=== PATIENT | female | born 1955 | race Caucasian/White ===

== ENCOUNTER 2021-06-17 08:45 | Inpatient (IN) | payer MEDICAID ==
[~2021-06-17] VITALS: Ht 160 cm; Wt 59.8 kg
[2021-06-17] MEDS ORDERED: ETOMIDATE 2 MG/ML 10 ML VIAL IVP ONE (09:00)
[2021-06-17] MEDS ORDERED: SUCCINYLCHOLINE CHLORIDE 20 MG/ML 10 ML VIAL IVP ONE (09:00)
[2021-06-17] MEDS ORDERED: IOHEXOL 350 MG/ML 100 ML VIAL ONE (09:02)
[2021-06-17] MEDS ORDERED: SODIUM CHLORIDE 0.9% 100 ML ONE (09:02)
[2021-06-17] MEDS ORDERED: ASPI-1450 PO (09:13)
[2021-06-17] MEDS ORDERED: CARV25 PO (09:13)
[2021-06-17] MEDS ORDERED: LEVE500T20 PO (09:13)
[2021-06-17] MEDS ORDERED: LISI-893 PO (09:13)
[2021-06-17] MEDS ORDERED: AMLO-258 PO (09:13)
[2021-06-17] MEDS ORDERED: NiCARDipine HCL 25 MG in DEXTROSE 5%-WATER 240 ML IV PRN (09:15)
[2021-06-17 09:34] LABS: BASOPHILS % (AUTO) 0.4 % (0.0-2.0); EOSINOPHILS % (AUTO) 0 % (1.0-6.0); HEMATOCRIT 40.3 % (36-46); HEMOGLOBIN 13.3 g/dL (12.0-16.0); LYMPHOCYTES % (AUTO) 7.7 % (22.0-44.0); MEAN CORPUSCULAR HEMOGLOBIN 28.8 pg (26.0-34.0); MEAN CORPUSCULAR HGB CONC 33.1 G/dL (31.0-37.0); MEAN CORPUSCULAR VOLUME 87 fL (80-100); MONOCYTES # (AUTO) 0.8 K/uL (0.1-1.0); MONOCYTES % (AUTO) 6.1 % (2.0-9.0); NEUTROPHILS # (AUTO) 11.4 K/uL (1.8-7.7); NEUTROPHILS % (AUTO) 85.8 % (40.0-70.0); PLATELET COUNT (AUTO) 267 K/uL (150-450); RED BLOOD CELL COUNT(AUTO) 4.63 MIL/uL (4.00-5.20)
[2021-06-17] MEDS: PROPOFOL 1000 MG/ISO-OSM 100 ML IV PRN ×3 (09:44→19:49)
[2021-06-17 09:46] LABS: CALCIUM, TOTAL 8.7 mg/dL (8.8-10.5); CREATININE 1.1 mg/dL (0.60-1.30); INR 1.1 (0.9-1.1); POTASSIUM 3.3 mmol/L (3.5-5.1); PROTHROMBIN TIME 11.8 SEC (9.4-11.6)
[2021-06-17 09:49] LABS: ALBUMIN 3.3 g/dL (3.4-5.0); BILIRUBIN,TOTAL 0.6 mg/dL (0.1-1.0)
[2021-06-17 10:13] LABS: COVID AG,FIA SOURCE NASAL SWAB
[2021-06-17 10:26] LABS: AMPHET/METH SCREEN,URINE NEGATIVE (NEGATIVE); BARBITURATE SCREEN, URINE NEGATIVE (NEGATIVE); BENZODIAZEPINES SCREEN,URINE NEGATIVE (NEGATIVE); CANNABINOID SCREEN,URINE NEGATIVE (NEGATIVE); COCAINE SCREEN,URINE NEGATIVE (NEGATIVE); METHADONE SCREEN, URINE NEGATIVE (NEGATIVE); OPIATE SCREEN,URINE NEGATIVE (NEGATIVE)
[2021-06-17 10:33] LABS: BILIRUBIN,URINE NEGATIVE (NEGATIVE); GLUCOSE, URINE (UA) NEGATIVE (NEGATIVE); KETONES,URINE TRACE mg/dL (NEGATIVE); LEUKOCYTE ESTERASE ,URINE NEGATIVE (NEGATIVE); NITRATE,URINE NEGATIVE (NEGATIVE); OCCULT BLOOD,URINE NEGATIVE (NEGATIVE); PROTEIN,URINE SEE CONFIRM (NEGATIVE)
[2021-06-17 10:35] LABS: APPEARANCE,URINE CLEAR (CLEAR)
[2021-06-17 10:36] LABS: PHENCYCLIDINE SCREEN,URINE NEGATIVE (NEGATIVE)
[2021-06-17 10:38] LABS: SULFOSALICYLIC ACID,URINE 2+ (Negative)
[2021-06-17 10:39] LABS: BACTERIA,URINE Moderate /HPF (None Seen); RBC,URINE None Seen /HPF (0-2); WBC,URINE None Seen /HPF (0-5)
[2021-06-17 12:00] VITALS: BP 117/57
[2021-06-17 13:36] LABS: GLUCOSE,POINT OF CARE 182 MG/DL (70-110)
[2021-06-17 16:00] VITALS: BP 116/59
[2021-06-17] MEDS ORDERED: IPRATROPIUM BROMIDE 0.5 MG/2.5 ML NEB SOLUTION NEB PRN (19:30)
[2021-06-17] MEDS ORDERED: ONDANSETRON HCL 4 MG/2 ML VIAL IVP PRN (19:30)
[2021-06-17] MEDS ORDERED: ZOLPIDEM TARTRATE 5 MG TABLET PO PRN (19:30)
[2021-06-17] MEDS ORDERED: ALBUTEROL SULFATE 2.5 MG/0.5 ML NEB SOLUTION NEB PRN (19:30)
[2021-06-17] MEDS ORDERED: MAGNESIUM HYDROXIDE SUSPENSION 30 ML UDCUP PO PRN (19:30)
[2021-06-17] MEDS ORDERED: BISACODYL 10 MG RECTAL RECTAL SUPPOSITORY PR PRN (19:30)
[2021-06-17 20:00] VITALS: BP 97/72
[2021-06-17] MEDS: LevETIRAcetam 500 MG in DEXTROSE 5%-WATER 100 ML IV SCH (21:01)
[2021-06-17] MEDS: DOCUSATE SODIUM 100 MG CAPSULE PO SCH (21:03)
[2021-06-17] MEDS ORDERED: SODIUM CHLORIDE 0.9% 250 ML IV ONE (21:22)
[2021-06-18] VITALS (10 sets, daily range): BP systolic 113–141; BP diastolic 65–97
[2021-06-18] MEDS: DOCUSATE SODIUM 100 MG CAPSULE PO SCH ×2 (08:39→19:58)
[2021-06-18] MEDS: PANTOPRAZOLE SODIUM 40 MG/VIAL IVP SCH (08:39)
[2021-06-18] MEDS: LevETIRAcetam 500 MG in DEXTROSE 5%-WATER 100 ML IV SCH ×2 (08:39→19:55)
[2021-06-18] MEDS: ACETAMINOPHEN 325 MG TABLET PO PRN ×2 (10:47→15:39)
[2021-06-18] MEDS ORDERED: POTASSIUM CHLORIDE 20 MEQ ER TABLET PO PRN (13:15)
[2021-06-18] MEDS: POTASSIUM CHL 10 MEQ/WATER 50 ML IV PRN ×3 (13:47→15:37)
[2021-06-18 23:57] LABS: ABG CARBOXYHEMOGLOBIN 1.5 % (0.0-1.5); ABG HCO3 24.6 mmol/L (22.0-26.0); ABG OXYGEN CONTENT 20.7 mL/dL (15.0-23.0); ABG OXYGEN SATURATION 98.4 % (95.0-98.0); ABG OXYHEMOGLOBIN 96.9 % (94.0-100.0); ABG PCO2 39 mmHg (35-45); ABG PH 7.413 (7.35-7.450); ABG TOTAL HEMOGLOBIN 15.1 G/dL (12.0-18.0); PO2, ARTERIAL BG 104.6 mmHg (79.0-87.0); SOURCE, BLOOD GAS ARTERIAL; TEMPERATURE, FAHRENHEIT, BG 98.6 FAHREN (96.0-98.6)
[2021-06-18 23:59] LABS: O2 DEVICE,BLOOD GAS VENTILATOR (ROOM AIR); PEEP,BG 5 cm H2O; SITE, BLOOD GAS RT BRACHIAL; SPONTANEOUS VT, BG 389 ml; VT, ABG 400 ml
[2021-06-19] VITALS (8 sets, daily range): BP systolic 126–149; BP diastolic 85–95
[2021-06-19 06:43] LABS: BASOPHILS % (AUTO) 0.8 % (0.0-2.0); EOSINOPHILS % (AUTO) 1.8 % (1.0-6.0); HEMATOCRIT 46.1 % (36-46); HEMOGLOBIN 15.2 g/dL (12.0-16.0); LYMPHOCYTES # (AUTO) 1.4 K/uL (1.0-4.8); LYMPHOCYTES % (AUTO) 10.2 % (22.0-44.0); MEAN CORPUSCULAR HEMOGLOBIN 29.2 pg (26.0-34.0); MEAN CORPUSCULAR HGB CONC 32.9 G/dL (31.0-37.0); MEAN CORPUSCULAR VOLUME 89 fL (80-100); MONOCYTES # (AUTO) 0.9 K/uL (0.1-1.0); MONOCYTES % (AUTO) 6.9 % (2.0-9.0); NEUTROPHILS % (AUTO) 80.3 % (40.0-70.0); PLATELET COUNT (AUTO) 221 K/uL (150-450); RED BLOOD CELL COUNT(AUTO) 5.19 MIL/uL (4.00-5.20)
[2021-06-19] MEDS: LevETIRAcetam 500 MG in DEXTROSE 5%-WATER 100 ML IV SCH ×2 (08:12→20:10)
[2021-06-19] MEDS: DOCUSATE SODIUM 100 MG CAPSULE PO SCH ×2 (08:13→20:14)
[2021-06-19] MEDS: AmLODIPine BESYLATE 5 MG TABLET PO SCH (08:13)
[2021-06-19] MEDS: ACETAMINOPHEN 325 MG TABLET PO PRN (08:13)
[2021-06-19] MEDS: PANTOPRAZOLE SODIUM 40 MG/VIAL IVP SCH (08:13)
[2021-06-19] MEDS: ETHYL ALCOHOL 62% ANTISEPTIC NASAL INHALANT 0.6 ML AMPUL NASAL SCH ×2 (08:13→20:14)
[2021-06-19] MEDS ORDERED: SODIUM CHLORIDE 0.9% 250 ML IV ONE (20:23)
[2021-06-20] VITALS: BP 132/90
[2021-06-20 04:00] VITALS: BP 138/90
[2021-06-20 08:00] VITALS: BP 127/94
[2021-06-20 08:56] LABS: BASOPHILS % (AUTO) 0.5 % (0.0-2.0); EOSINOPHILS % (AUTO) 1.5 % (1.0-6.0); HEMOGLOBIN 14.6 g/dL (12.0-16.0); LYMPHOCYTES # (AUTO) 1.1 K/uL (1.0-4.8); LYMPHOCYTES % (AUTO) 9.7 % (22.0-44.0); MEAN CORPUSCULAR HEMOGLOBIN 29.5 pg (26.0-34.0); MEAN CORPUSCULAR HGB CONC 33.2 G/dL (31.0-37.0); MEAN CORPUSCULAR VOLUME 89 fL (80-100); MONOCYTES # (AUTO) 0.8 K/uL (0.1-1.0); MONOCYTES % (AUTO) 6.7 % (2.0-9.0); NEUTROPHILS # (AUTO) 9.2 K/uL (1.8-7.7); NEUTROPHILS % (AUTO) 81.6 % (40.0-70.0); PLATELET COUNT (AUTO) 224 K/uL (150-450); RED BLOOD CELL COUNT(AUTO) 4.94 MIL/uL (4.00-5.20); RED CELL DISTRIBUTION WIDTH 13.9 % (11.5-14.5)
[2021-06-20] MEDS: LevETIRAcetam 500 MG in DEXTROSE 5%-WATER 100 ML IV SCH ×2 (08:57→20:59)
[2021-06-20] MEDS: ETHYL ALCOHOL 62% ANTISEPTIC NASAL INHALANT 0.6 ML AMPUL NASAL SCH ×2 (08:57→21:42)
[2021-06-20] MEDS: PANTOPRAZOLE SODIUM 40 MG/VIAL IVP SCH (08:57)
[2021-06-20] MEDS: AmLODIPine BESYLATE 5 MG TABLET PO SCH (08:58)
[2021-06-20] MEDS: DOCUSATE SODIUM 100 MG CAPSULE PO SCH ×2 (08:58→21:42)
[2021-06-20 09:14] LABS: ANION GAP 15 mmol/L (8-16); CALCIUM, TOTAL 9.4 mg/dL (8.8-10.5); CARBON DIOXIDE 24 mmol/L (22-29); CHLORIDE 106 mmol/L (98-107); CREATININE 0.78 mg/dL (0.60-1.30); GLOMERULAR FILTR. RATE CALC > 60 mL/min (>60); GLUCOSE,RANDOM 126 mg/dL (70-110); POTASSIUM 3.5 mmol/L (3.5-5.1); SODIUM SERUM 145 mmol/L (136-145); UREA NITROGEN, BLOOD 38 mg/dL (7-18)
[2021-06-20] MEDS ORDERED: SODIUM CHLORIDE 0.9% 250 ML IV ONE (10:27)
[2021-06-20 12:00] VITALS: BP 135/90
[2021-06-20] MEDS: ACETAMINOPHEN 325 MG TABLET PO PRN (12:06)
[2021-06-20 16:00] VITALS: BP 137/103
[2021-06-20] MEDS: CARVEDILOL 6.25 MG TABLET PO SCH (21:42)
[2021-06-21] VITALS: BP 141/89
[2021-06-21 04:00] VITALS: BP 136/86
[2021-06-21 08:00] VITALS: BP 137/97
[2021-06-21] MEDS: AmLODIPine BESYLATE 5 MG TABLET PO SCH (08:56)
[2021-06-21] MEDS: CARVEDILOL 6.25 MG TABLET PO SCH ×2 (08:56→19:52)
[2021-06-21] MEDS: PANTOPRAZOLE SODIUM 40 MG/VIAL IVP SCH (08:56)
[2021-06-21] MEDS: DOCUSATE SODIUM 100 MG CAPSULE PO SCH ×2 (08:56→19:52)
[2021-06-21] MEDS: ETHYL ALCOHOL 62% ANTISEPTIC NASAL INHALANT 0.6 ML AMPUL NASAL SCH ×2 (08:57→19:52)
[2021-06-21] MEDS: LevETIRAcetam 500 MG in DEXTROSE 5%-WATER 100 ML IV SCH ×2 (08:57→19:52)
[2021-06-21] MEDS: ACETAMINOPHEN 325 MG TABLET PO PRN ×2 (09:19→16:03)
[2021-06-21] MEDS ORDERED: SODIUM CHLORIDE 0.9% 250 ML IV ONE (11:56)
[2021-06-21 12:00] VITALS: BP 98/83
[2021-06-21 16:00] VITALS: BP 132/99
[2021-06-21] MEDS ORDERED: *CLINICAL-LEVOFLOXACIN IVPB DOSING CLINICAL ONE (18:30)
[2021-06-21] MEDS: LEVOFLOXACIN 750 MG/D5% WATER 150 ML IV SCH (19:52)
[2021-06-21 20:00] VITALS: BP 123/83
[2021-06-22] VITALS: BP 117/85
[2021-06-22 04:00] VITALS: BP 123/87
[2021-06-22 08:00] VITALS: BP 127/86
[2021-06-22] MEDS: PANTOPRAZOLE SODIUM 40 MG/VIAL IVP SCH (08:20)
[2021-06-22] MEDS: DOCUSATE SODIUM 100 MG CAPSULE PO SCH ×2 (08:20→21:00)
[2021-06-22] MEDS: CARVEDILOL 6.25 MG TABLET PO SCH ×2 (08:21→21:26)
[2021-06-22] MEDS: LevETIRAcetam 500 MG in DEXTROSE 5%-WATER 100 ML IV SCH ×2 (08:21→21:19)
[2021-06-22] MEDS: AmLODIPine BESYLATE 5 MG TABLET PO SCH (08:21)
[2021-06-22] MEDS: ETHYL ALCOHOL 62% ANTISEPTIC NASAL INHALANT 0.6 ML AMPUL NASAL SCH ×2 (08:21→21:25)
[2021-06-22 11:38] LABS: BASOPHILS % (AUTO) 0.6 % (0.0-2.0); EOSINOPHILS % (AUTO) 4.2 % (1.0-6.0); HEMATOCRIT 41.8 % (36-46); HEMOGLOBIN 13.9 g/dL (12.0-16.0); LYMPHOCYTES # (AUTO) 1.2 K/uL (1.0-4.8); LYMPHOCYTES % (AUTO) 10.1 % (22.0-44.0); MEAN CORPUSCULAR HEMOGLOBIN 29.4 pg (26.0-34.0); MEAN CORPUSCULAR HGB CONC 33.2 G/dL (31.0-37.0); MEAN CORPUSCULAR VOLUME 89 fL (80-100); MONOCYTES # (AUTO) 0.9 K/uL (0.1-1.0); MONOCYTES % (AUTO) 7.6 % (2.0-9.0); NEUTROPHILS # (AUTO) 9.5 K/uL (1.8-7.7); NEUTROPHILS % (AUTO) 77.5 % (40.0-70.0); PLATELET COUNT (AUTO) 172 K/uL (150-450); RED BLOOD CELL COUNT(AUTO) 4.72 MIL/uL (4.00-5.20); RED CELL DISTRIBUTION WIDTH 14.2 % (11.5-14.5)
[2021-06-22 12:00] VITALS: BP 120/84
[2021-06-22 12:34] LABS: APPEARANCE,URINE CLEAR (CLEAR); BILIRUBIN,URINE NEGATIVE (NEGATIVE); GLUCOSE, URINE (UA) NEGATIVE (NEGATIVE); KETONES,URINE NEGATIVE (NEGATIVE); LEUKOCYTE ESTERASE ,URINE NEGATIVE (NEGATIVE); NITRATE,URINE NEGATIVE (NEGATIVE); PH,URINE 5.5 (5.0-8.0); PROTEIN,URINE POS 1+ (NEGATIVE)
[2021-06-22 12:39] LABS: BACTERIA,URINE None Seen /HPF (None Seen); OCCULT BLOOD,URINE SMALL (NEGATIVE); WBC,URINE None Seen /HPF (0-5)
[2021-06-22 16:00] VITALS: BP 138/97
[2021-06-22] MEDS: LEVOFLOXACIN 750 MG/D5% WATER 150 ML IV SCH (18:11)
[2021-06-22 20:00] VITALS: BP 133/93
[2021-06-23] VITALS: BP 119/85
[2021-06-23] MEDS: ACETAMINOPHEN 325 MG TABLET PO PRN ×2 (03:23→17:11)
[2021-06-23 07:21] VITALS: BP 125/84
[2021-06-23 08:00] VITALS: BP 126/85
[2021-06-23] MEDS: AmLODIPine BESYLATE 5 MG TABLET PO SCH (08:07)
[2021-06-23] MEDS: ETHYL ALCOHOL 62% ANTISEPTIC NASAL INHALANT 0.6 ML AMPUL NASAL SCH ×2 (08:07→21:35)
[2021-06-23] MEDS: LevETIRAcetam 500 MG in DEXTROSE 5%-WATER 100 ML IV SCH ×2 (08:07→21:36)
[2021-06-23] MEDS: CARVEDILOL 6.25 MG TABLET PO SCH ×2 (08:07→21:35)
[2021-06-23] MEDS: PANTOPRAZOLE SODIUM 40 MG/VIAL IVP SCH (08:07)
[2021-06-23] MEDS: DOCUSATE SODIUM 100 MG CAPSULE PO SCH ×2 (08:08→21:35)
[2021-06-23 12:00] VITALS: BP 118/84
[2021-06-23 16:00] VITALS: BP 116/75
[2021-06-23] MEDS: LEVOFLOXACIN 750 MG/D5% WATER 150 ML IV SCH (19:49)
[2021-06-23 20:00] VITALS: BP 112/77
[2021-06-24 00:59] VITALS: BP 113/72
[2021-06-24] MEDS: ACETAMINOPHEN 325 MG TABLET PO PRN ×2 (01:05→16:15)
[2021-06-24 04:35] VITALS: BP 118/80
[2021-06-24 06:05] LABS: BASOPHILS % (AUTO) 0.6 % (0.0-2.0); HEMATOCRIT 40.7 % (36-46); HEMOGLOBIN 13.3 g/dL (12.0-16.0); LYMPHOCYTES # (AUTO) 1.4 K/uL (1.0-4.8); LYMPHOCYTES % (AUTO) 13.6 % (22.0-44.0); MEAN CORPUSCULAR HEMOGLOBIN 29.1 pg (26.0-34.0); MEAN CORPUSCULAR HGB CONC 32.6 G/dL (31.0-37.0); MEAN CORPUSCULAR VOLUME 89 fL (80-100); MONOCYTES # (AUTO) 0.8 K/uL (0.1-1.0); MONOCYTES % (AUTO) 7.4 % (2.0-9.0); NEUTROPHILS # (AUTO) 7.7 K/uL (1.8-7.7); NEUTROPHILS % (AUTO) 74.4 % (40.0-70.0); PLATELET COUNT (AUTO) 181 K/uL (150-450); RED BLOOD CELL COUNT(AUTO) 4.55 MIL/uL (4.00-5.20)
[2021-06-24 06:16] LABS: ANION GAP 9 mmol/L (8-16); CARBON DIOXIDE 26 mmol/L (22-29); CHLORIDE 106 mmol/L (98-107); CREATININE 0.89 mg/dL (0.60-1.30); GLOMERULAR FILTR. RATE CALC > 60 mL/min (>60); GLUCOSE,RANDOM 116 mg/dL (70-110); POTASSIUM 3.5 mmol/L (3.5-5.1); SODIUM SERUM 141 mmol/L (136-145); UREA NITROGEN, BLOOD 38 mg/dL (7-18)
[2021-06-24] MEDS ORDERED: SODIUM CHLORIDE 0.9% 250 ML IV ONE (07:41)
[2021-06-24 08:00] VITALS: BP 111/81
[2021-06-24] MEDS: LevETIRAcetam 500 MG in DEXTROSE 5%-WATER 100 ML IV SCH ×2 (08:19→19:57)
[2021-06-24] MEDS: CARVEDILOL 6.25 MG TABLET PO SCH ×2 (08:19→21:29)
[2021-06-24] MEDS: AmLODIPine BESYLATE 5 MG TABLET PO SCH (08:19)
[2021-06-24] MEDS: PANTOPRAZOLE SODIUM 40 MG/VIAL IVP SCH (08:19)
[2021-06-24] MEDS: ETHYL ALCOHOL 62% ANTISEPTIC NASAL INHALANT 0.6 ML AMPUL NASAL SCH ×2 (08:19→21:29)
[2021-06-24] MEDS: DOCUSATE SODIUM 100 MG CAPSULE PO SCH ×2 (08:19→21:29)
[2021-06-24 12:00] VITALS: BP 113/84
[2021-06-24 16:00] VITALS: BP 130/63
[2021-06-24] MEDS: LEVOFLOXACIN 750 MG/D5% WATER 150 ML IV SCH (19:57)
[2021-06-24 20:00] VITALS: BP 137/84
[2021-06-25] VITALS: BP 134/82
[2021-06-25 04:00] VITALS: BP 130/87
[2021-06-25] MEDS: ACETAMINOPHEN 325 MG TABLET PO PRN (04:38)
[2021-06-25 08:00] VITALS: BP 132/88
[2021-06-25] MEDS: DOCUSATE SODIUM 100 MG CAPSULE PO SCH ×2 (08:32→20:37)
[2021-06-25] MEDS: ETHYL ALCOHOL 62% ANTISEPTIC NASAL INHALANT 0.6 ML AMPUL NASAL SCH ×2 (08:32→20:37)
[2021-06-25] MEDS: AmLODIPine BESYLATE 5 MG TABLET PO SCH (08:32)
[2021-06-25] MEDS: CARVEDILOL 6.25 MG TABLET PO SCH ×2 (08:32→20:37)
[2021-06-25] MEDS: LevETIRAcetam 500 MG in DEXTROSE 5%-WATER 100 ML IV SCH ×2 (08:32→20:37)
[2021-06-25] MEDS: PANTOPRAZOLE SODIUM 40 MG/VIAL IVP SCH (08:32)
[2021-06-25 12:00] VITALS: BP 109/69
[2021-06-25 16:00] VITALS: BP 113/77
[2021-06-25 20:00] VITALS: BP 112/78
[2021-06-25] MEDS: LEVOFLOXACIN 750 MG/D5% WATER 150 ML IV SCH (20:37)
[2021-06-26] VITALS: BP 115/70
[2021-06-26 04:00] VITALS: BP 110/78
[2021-06-26] MEDS: POTASSIUM CHL 10 MEQ/WATER 50 ML IV PRN (07:55)
[2021-06-26] MEDS: PANTOPRAZOLE SODIUM 40 MG/VIAL IVP SCH (07:55)
[2021-06-26] MEDS: CARVEDILOL 6.25 MG TABLET PO SCH ×2 (07:55→20:11)
[2021-06-26] MEDS: AmLODIPine BESYLATE 5 MG TABLET PO SCH (07:55)
[2021-06-26] MEDS: LevETIRAcetam 500 MG in DEXTROSE 5%-WATER 100 ML IV SCH ×2 (07:56→19:48)
[2021-06-26] MEDS: ETHYL ALCOHOL 62% ANTISEPTIC NASAL INHALANT 0.6 ML AMPUL NASAL SCH ×2 (07:56→20:11)
[2021-06-26] MEDS ORDERED: SODIUM CHLORIDE 0.9% 250 ML IV ONE (08:08)
[2021-06-26 08:10] VITALS: BP 110/76
[2021-06-26] MEDS: DOCUSATE SODIUM 100 MG CAPSULE PO SCH ×2 (09:00→20:11)
[2021-06-26 10:00] VITALS: BP 11/77
[2021-06-27] MEDS: PANTOPRAZOLE SODIUM 40 MG/VIAL IVP SCH (07:51)
[2021-06-27] MEDS: LevETIRAcetam 500 MG in DEXTROSE 5%-WATER 100 ML IV SCH ×2 (07:56→20:04)
[2021-06-27] MEDS: DOCUSATE SODIUM 100 MG CAPSULE PO SCH ×2 (07:56→20:06)
[2021-06-27] MEDS: ETHYL ALCOHOL 62% ANTISEPTIC NASAL INHALANT 0.6 ML AMPUL NASAL SCH ×2 (07:56→20:08)
[2021-06-27] MEDS: AmLODIPine BESYLATE 5 MG TABLET PO SCH (07:57)
[2021-06-27] MEDS: CARVEDILOL 6.25 MG TABLET PO SCH ×2 (07:57→20:06)
[2021-06-27] MEDS: MORPHINE SULFATE 100 MG/NS/PF 100 ML IV PRN ×3 (07:59→23:00)
[2021-06-27 08:00] VITALS: BP 112/70
[2021-06-28] MEDS: MORPHINE SULFATE 100 MG/NS/PF 100 ML IV PRN ×2 (05:18→18:13)
[2021-06-28 20:25] VITALS: BP 154/64
[2021-06-29] MEDS: MORPHINE SULFATE 100 MG/NS/PF 100 ML IV PRN ×5 (03:46→23:31)
[2021-06-29 04:15] VITALS: BP 145/65
[2021-06-29 08:19] VITALS: BP 127/93
[2021-06-29 15:54] VITALS: BP 126/82
[2021-06-29 21:19] VITALS: BP 136/89
[2021-06-30 05:13] VITALS: BP 147/97
[2021-06-30] MEDS: MORPHINE SULFATE 100 MG/NS/PF 100 ML IV PRN ×2 (05:41→10:53)
[2021-06-30 08:12] VITALS: BP 146/107
== END 2021-06-30 14:12 | DRG 44 ==
LOC: EMS 08:48 → EDBD 08:48 → ICU 10:36 → 6N 06-28 18:55 → 6S 06-30 11:17
PROVIDERS: ADMIT Hospitalist; ATTEND Hospitalist
PROC: 5A1955Z Respiratory Ventilation, Greater than 96 Consecutive Hours (ICD-10-PCS; principal; 2021-06-17)
PROC: 0BH17EZ Insertion of Endotracheal Airway into Trachea, Via Natural or Artificial Opening (ICD-10-PCS; 2021-06-17)
DX: I61.9 Nontraumatic intracerebral hemorrhage, unspecified (principal); J96.00 Acute respiratory failure, unspecified whether with hypoxia or hypercapnia; E44.0 Moderate protein-calorie malnutrition; I16.1 Hypertensive emergency; E87.6 Hypokalemia; D72.829 Elevated white blood cell count, unspecified; Z66 Do not resuscitate; G91.9 Hydrocephalus, unspecified; Z68.23 Body mass index [BMI] 23.0-23.9, adult; I10 Essential (primary) hypertension; I25.10 Atherosclerotic heart disease of native coronary artery without angina pectoris; I95.9 Hypotension, unspecified; Z20.822 Contact with and (suspected) exposure to COVID-19; R41.82 Altered mental status, unspecified; Z88.0 Allergy status to penicillin; Z86.73 Personal history of transient ischemic attack (TIA), and cerebral infarction without residual deficits; Z51.5 Encounter for palliative care
CPT/HCPCS: 31500; 36600; 51702; 70450; 70496; 70498; 71045; 80048; 80053; 81001; 81002; 82805; 82962; 84132; 84484; 85025; 85610; 85730; 86850; 86900; 86901; 87081; 87086; 93005; 94002; 94003; 99291; C9113; G0378; J0712; J1956; J2270; J2704; J3480; J3490; J7050; J7060; Q9967; 36415-L1; 36415-TC